=== PATIENT | male | born 1995 | race African-American/Black ===

== ENCOUNTER 2017-07-24 20:30 | Emergency (ER) | payer SELFPAY ==
[2017-07-24] MEDS ORDERED: Ibuprofen TAB* 800 MG PO ONE (20:41)
[2017-07-24 20:42] VITALS: BP 127/67
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
== END 2017-07-24 21:53 | disposition home or self-care (01) ==
LOC: ED 20:30
DX: M54.9 Dorsalgia, unspecified (principal); M54.2 Cervicalgia; R11.0 Nausea
CPT/HCPCS: 72070; 72110; 99282; A9270-GY